=== PATIENT | male | born 1985 | race Caucasian/White ===

== ENCOUNTER 2018-01-17 11:56 | Inpatient (IN) ==
--- NOTE | 2018-01-17 12:41 | Emergency Department Note ---
[facility] [place] Disposition Condition on Discharge: Good <ManuelMartínez S - Last Filed: 01/17/18 14:05> Condition on Discharge: Good <Sylvie Epps - Last Filed: 01/17/18 14:07> Clinical Impression: Perirectal abscess Disposition: Still a Patient Medical Decision Making - Medical Records Medical records reviewed: Yes: I reviewed the patient's medical records. - Ivan Inquiry Pt receiving controlled substance: No Ivan was queried for this patient: No - Physician Consults Physician Consulted: Dr Boothe Time: 12:43 Reason -: Admission, Pt condition Comment/Response: Spoke with Dr Boothe that was covering for General Surgery about patient and findings He recommended admission and IV antibiotics and he would see patient when he made rounds at the hospital Additional Consult: Dr Jackson Time: 13:00 Reason -: Admission, Pt condition Comment/Response: Spoke with Dr Jackson ER physician and asked him to consult on this patient and speak with patient about admission for IV antibiotics and surgery consult Dr Jackson at the bedside talking with patient about treatment options and patient agreed to be admitted to the hospital for IV antibiotics and treatment as appropriate. Dr Jackson spoke with patient about family doctor and advise that he would call and speak with them about admission <Sylvie Epps E - Last Filed: 01/17/18 14:07> Vital Signs: 01/17/18 12:18 Temperature 98.4 F Temperature Source Temporal Artery Scan Pulse Rate [Right Brachial] 104 H Respiratory Rate 20 Blood Pressure [Right Arm] 147/72 Blood Pressure Mean [Right Arm] 97 Blood Pressure Source [Right Arm] Automatic Cuff Blood Pressure Position [Right Arm] Sitting 02 Sat by Pulse Oximetry 98 Oxygen Delivery Method Room Air [facility] [place] HPI <ManuelMartínez Leslie - Last Filed: 01/17/18 14:05> - General Mode of Arrival: Family Vehicle Source of Information: Patient Limitations: No Limitations Description of Symptoms (Recalled from Triage Doc. by RN): REDNESS AND SWELLING ABOVE "BUTT CRACK" X 3 DAYS WITH INCREASING PAIN HEENT Symptoms (Recalled from RN notes): No Resp Symptoms (Recalled from RN notes): No Skin Symptoms (Recalled from RN notes): Yes MS Symptoms (Recalled from RN notes): No Functional Status (Recalled from RN notes): N/A - History of Present Illness Provider Complaint: Patient states that he has been having pain around the top of his "butt crack" for the last 3 days. State that he had his look at it and she noticed that he had a red knot like area there that was swollen and looked infected so they tried to open it at home to see if they could get anything out but nothing came out of it it hurt to bad and he made her stop This morning when he woke up it was swollen more and looked more red and he would have pain every time he tried to sit down so he came in to get checke dout - Worker's Comp Is this a Worker's Comp case?: No <EppsSylvie bishop - Last Filed: 01/17/18 14:07> - General Stated complaint: Swelling and redness above "butt crack" Time Seen by Provider: 01/17/18 12:25 - Related Data Home Medications Medication Instructions Recorded Confirmed Omeprazole Magnesium [Prilosec Otc 20 mg PO DAILY 01/17/18 01/17/18 20mg Tab] Allergies Allergy/AdvReac Type Severity Reaction Status Date / Time No Known Allergies Allergy Verified 01/17/18 12:21 [facility] History I have reviewed the patient's past medical history: Yes Laterality Cases: Bilateral: Tonsillectomy - Social History Smoking Status: Current every day smoker Tobacco Type: cigarettes Alcohol Intake: never - Psychiatric History Expresses thoughts of harming self/others: None Suicide Plan Description: No Plan <MichAbida - Last Filed: 01/17/18 14:07> <Martínez Jackson - Last Filed: 01/17/18 14:05> ROS Obtained: Yes All systems reviewed & no additional complaints - Constitutional Constitutional: Denies chills, Denies fever(s) <MichAbida - Last Filed: 01/17/18 14:07> - Allergic/Immunologic Comments: Pain and swelling of area just above his "butt crack" state that family tried to open it up and get it to drain but nothing came out of it and it hurt to bad (Sylvie Epps) Physical Exam <Martínez Jackson - Last Filed: 01/17/18 14:05> - General General appearance: alert, in no apparent distress - Respiratory Respiratory exam: Present: normal lung sounds bilaterally. Absent: respiratory distress - Cardiovascular Cardiovascular exam: Present: regular rate - Neurological Exam Neurological exam: Present: alert, oriented X3 <Sylvie Epps - Last Filed: 01/17/18 14:07> - Rectal Exam comment: Large red, hard, pilonidal abcess noted, warm to touch with area where it appears that someone attempted to open area, no drainage noted at this time. Swelling with hardness noted on both upper buttocks State that pain worse when he tries to sit down (Sylvie Epps) - Other Other exam information: Large pilonidal abcess noted, red warm to touch that extended down into buttock area approximately about 3-4 inches long Tender to touch Patient state that pain is worse when he tries to sit down. Denies fever, denies chills (Sylvie Epps)
[2018-01-17 15:36] LABS: Basophils % 0.3 % (0.1-2.0); Eosinophils # 0.2 K/mm3 (0.0-0.4); Eosinophils % 1.6 % (0.1-12.0); Hematocrit 44.9 % (42.0-52.0); Hemoglobin 15.3 g/dL (14.1-18.0); Lymphocytes # 2.4 K/mm3 (0.7-4.5); Lymphocytes % 19.6 K/mm3 (10-50); Mean Corpuscular HGB Conc 34.1 g/dL (31.8-35.4); Mean Corpuscular Hemoglobin 30.2 pg (27.0-31.2); Mean Corpuscular Volume 88.5 fl (80-94); Mean Platelet Volume 8.4 fl (7.4-10.4); Monocytes # 0.8 K/mm3 (0.1-1.0); Monocytes % 6.2 % (1.7-9.3); Neutrophils # 8.8 K/mm3 (1.8-7.8); Neutrophils % 72.3 % (37.0-80.0); Platelet Count 223 K/mm3 (142-424); Red Blood Count 5.08 M/mm3 (4.60-6.20); Red Cell Distribution Width 12.8 % (11.5-17.5); White Blood Count 12.2 K/mm3 (4.8-10.8)
[2018-01-17 15:48] LABS: Albumin Level 3.9 gm/dL (3.4-5.0); Albumin/Globulin Ratio 0.9 (1.1-1.8); Bilirubin,Total 0.6 mg/dL (0.2-1.0); Calcium 9.4 mg/dL (8.5-10.1); Globulin 4.3 gm/dl (1.3-3.2); Total Protein,Serum 8.2 gm/dL (6.4-8.2)
--- NOTE | 2018-01-17 18:27 | History & Physical Report ---
*Admission Date: 01/17/18 *Chief complaint: Gluteal cleft abscess *History of present illness: 32-year-old white male with no significant medical history and no medications at home, who over the past couple of weeks noticed some increasing swelling at the top of the gluteal cleft on the left side. He and his attempted to jarod this at home but were unsuccessful yesterday and came to the [facility] today where pilonidal cyst was diagnosed with significant redness and swelling. ER physician examined him and recommended admission with surgical consultation. 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 He has noticed the swelling has worsened with activity. Denies neurologic symptoms into his legs, bowel or bladder changes or saddle anesthesia. [facility] History I have reviewed the patient's past medical history: Yes Medical History: Denies:: Cancer, Diabetes Mellitus Type 1, Diabetes Mellitus Type 2, MRSA Laterality Cases: Bilateral: Tonsillectomy Other Surgeries: Yes: Other (tosilectomy) Amputation: No Fractures: No - *Social History Educational Level: Completed High School Smoking Status: Current every day smoker Tobacco Type: cigarettes Alcohol Intake: never Occupational Status: employed Housing: house Household Members: spouse - Psychiatric History Expresses thoughts of harming self/others: None Suicide Plan Description: No Plan *Family Hx:: Hypertension Review of Systems - Constitutional Reports fever(s), Denies chills - Eyes Denies blind spots, Denies blurry vision - ENT Denies abnormal hearing - *Cardiovascular Denies chest pain, Denies chest pain at rest, Denies chest pain with activity, Denies excessive sweating, Denies shortness of breath - *Respiratory Denies change in phlegm color, Denies chest congestion, Denies cough - *Gastrointestinal Denies abdominal pain, Denies belching - *Genitourinary Denies difficulty urinating, Denies painful urination - *Musculoskeletal Denies abnormal walking - *Neurologic Denies abnormal walking - Endocrine Denies cold intolerance, Denies flushing, Denies rapid, pounding, or irregular heartbeat Meds Home Medications Medication Instructions Recorded Confirmed Type Omeprazole Magnesium [Prilosec Otc 20 mg PO DAILY 01/17/18 01/17/18 History 20mg Tab] Allergies Allergy/AdvReac Type Severity Reaction Status Date / Time No Known Allergies Allergy Verified 01/17/18 12:21 Exam Vital signs and Labs for Last 24 Hours: Temp Pulse Resp BP Pulse Ox 98.3 F 104 H 20 145/92 98 01/17/18 14:40 01/17/18 14:40 01/17/18 14:40 01/17/18 14:40 01/17/18 14:40 Laboratory Results - last 24 hr 01/17/18 15:25: WBC 12.2 H, RBC 5.08, Hgb 15.3, Hct 44.9, MCV 88.5, MCH 30.2, MCHC 34.1, RDW 12.8, Plt Count 223, MPV 8.4, Neut % (Auto) 72.3, Lymph % (Auto) 19.6, Tyler % (Auto) 6.2, Eos % (Auto) 1.6, Baso % (Auto) 0.3, Neut # (Auto) 8.8 H, Lymph # (Auto) 2.4, Tyler # (Auto) 0.8, Eos # (Auto) 0.2, Baso # (Auto) 0.0 01/17/18 15:25: Sodium 137, Potassium 4.0, Chloride 101, Carbon Dioxide 30, Anion Gap 10.0, BUN 12, Creatinine 0.96, Estimated Creat Clear 186, Estimated GFR 90, Est GFR ( Amer) 109, Glucose 93, Calcium 9.4, Total Bilirubin 0.6 , AST 26, ALT 48, Alkaline Phosphatase 96, Total Protein 8.2, Albumin 3.9, Globulin 4.3 H, Albumin/Globulin Ratio 0.9 L I & O for Last 24 hours: Intake & Output 01/15/18 01/16/18 01/17/18 01/18/18 11:59 11:59 11:59 11:59 Intake Total 840 / 840 Balance 840 / 840 Weight 265 lb 3 oz - Constitutional no acute distress - *Routine HEENT Exam Head: Present: normocephalic, atraumatic Eye: Present: EOMI - *Routine Neck Exam Present: supple - *Routine Respiratory Exam Present: accessory muscle use, CTA bilaterally - *Routine Cardiovascular Exam Present: RRR, Normal S1, Normal S2 - *Routine Abdominal Exam Present: soft, normoactive bowel sounds - *Routine Rectal Exam Comments: Pilonidal cyst at the top of the gluteal cleft, extremely tender, fluctuant area of approximately 2 cm x 1 cm on the left aspect of the left upper buttock. Surrounding redness is approximately 4 cm around this area. - *Routine Extremities Exam Present: full ROM. Absent: cyanosis, clubbing, edema - *Routine Neurological Exam Present: alert, oriented X3, CN II-XII intact H&P: Result - Labs Labs: Short CBC 01/17/18 Range/Units 15:25 WBC 12.2 H (4.8-10.8) K/mm3 Hgb 15.3 (14.1-18.0) g/dL Hct 44.9 (42.0-52.0) % Plt Count 223 (142-424) K/mm3 BMP 01/17/18 15:25 Sodium 137 Potassium 4.0 Chloride 101 Carbon Dioxide 30 BUN 12 Creatinine 0.96 Glucose 93 Calcium 9.4 Liver Function 01/17/18 Range/Units 15:25 Total Bilirubin 0.6 (0.2-1.0) mg/dL AST 26 (15-37) U/L ALT 48 (12-78) U/L Alkaline Phosphatase 96 (46-116) U/L Albumin 3.9 (3.4-5.0) gm/dL Assessment and Plan (1) Pilonidal cyst Current visit: Yes Status: Acute Category: Medical Code(s): L05.91 - Pilonidal cyst without abscess (2) Perirectal abscess Current visit: Yes Status: Acute Category: Medical Code(s): K61.1 - Rectal abscess Agree with admission for IV antibiotics, surgical consultation. Follow labs.
[2018-01-18 07:44] LABS: Basophils % 0.3 % (0.1-2.0); Hematocrit 40.1 % (42.0-52.0); Lymphocytes # 2.4 K/mm3 (0.7-4.5); Monocytes # 0.8 K/mm3 (0.1-1.0); Red Cell Distribution Width 12.8 % (11.5-17.5)
--- NOTE | 2018-01-18 07:45 | Progress Note ---
Internal Medicine - PN: Subj *Date: 01/18/18 *Time: 07:45 Interval history: No problems overnight, slept well. N.p.o. this morning. Exam Vital signs and Labs for Last 24 Hours: Temp Pulse Resp BP Pulse Ox 98.3 F 77 18 102/51 97 01/18/18 04:00 01/18/18 04:00 01/18/18 04:00 01/18/18 04:00 01/18/18 04:00 Laboratory Results - last 24 hr 01/17/18 15:25: WBC 12.2 H, RBC 5.08, Hgb 15.3, Hct 44.9, MCV 88.5, MCH 30.2, MCHC 34.1, RDW 12.8, Plt Count 223, MPV 8.4, Neut % (Auto) 72.3, Lymph % (Auto) 19.6, Otoe % (Auto) 6.2, Eos % (Auto) 1.6, Baso % (Auto) 0.3, Neut # (Auto) 8.8 H, Lymph # (Auto) 2.4, Otoe # (Auto) 0.8, Eos # (Auto) 0.2, Baso # (Auto) 0.0 01/17/18 15:25: Sodium 137, Potassium 4.0, Chloride 101, Carbon Dioxide 30, Anion Gap 10.0, BUN 12, Creatinine 0.96, Estimated Creat Clear 186, Estimated GFR 90, Est GFR ( Amer) 109, Glucose 93, Calcium 9.4, Total Bilirubin 0.6 , AST 26, ALT 48, Alkaline Phosphatase 96, Total Protein 8.2, Albumin 3.9, Globulin 4.3 H, Albumin/Globulin Ratio 0.9 L I & O for Last 24 hours: Intake & Output 01/15/18 01/16/18 01/17/18 01/18/18 11:59 11:59 11:59 11:59 Intake Total 2328 / 2328 Balance 2328 / 2328 Weight 265 lb 3 oz Narrative: Cardio pulmonary assessment unremarkable, no fevers. No change in appearance of pilonidal cyst. Assessment and Plan (1) Pilonidal cyst Current visit: Yes Status: Acute Category: Medical Code(s): L05.91 - Pilonidal cyst without abscess (2) Perirectal abscess Current visit: Yes Status: Acute Category: Medical Code(s): K61.1 - Rectal abscess - Assessment and plan all Dx Assessment and Plan for all problems:: Surgical consultation today. Continue IV antibiotics.
[2018-01-18 07:47] LABS: Anion Gap 11.9 mEq/L (5-15); Potassium 3.9 mmoL/L (3.5-5.1)
[2018-01-18 07:53] LABS: Eosinophils # 0.3 K/mm3 (0.0-0.4); Eosinophils % 2.7 % (0.1-12.0); Lymphocytes % 23.1 K/mm3 (10-50); Mean Corpuscular HGB Conc 33.6 g/dL (31.8-35.4); Mean Corpuscular Hemoglobin 29.7 pg (27.0-31.2); Mean Corpuscular Volume 88.6 fl (80-94); Mean Platelet Volume 8.8 fl (7.4-10.4); Monocytes % 7.4 % (1.7-9.3); Neutrophils % 66.6 % (37.0-80.0); Platelet Count 192 K/mm3 (142-424); Red Blood Count 4.53 M/mm3 (4.60-6.20); White Blood Count 10.5 K/mm3 (4.8-10.8)
[2018-01-18 07:54] LABS: Hemoglobin 13.5 g/dL (14.1-18.0)
--- NOTE | 2018-01-18 08:40 | Pharmacy Consult Notes ---
[facility] Pharmacy VTE Monitoring - Patient Demographics Admission date: 01/17/18 Report Date: 01/18/18 Time: 08:40 Allergies/Adverse Reactions: Patient Allergies No Known Allergies Allergy (Verified 01/17/18 12:21) Height: 1.75 m Weight: 120.287 kg Patient Problems: Current Active Problems Perirectal abscess (Acute) Pilonidal cyst (Acute) - VTE Risk Labs: VTE Related Lab Results Hgb 13.5 g/dL (14.1-18.0) L D 01/18/18 06:40 Hct 40.1 % (42.0-52.0) L 01/18/18 06:40 Plt Count 192 K/mm3 (142-424) 01/18/18 06:40 BUN 12 mg/dL (7-18) 01/18/18 06:40 Creatinine 0.81 mg/dL (0.70-1.30) 01/18/18 06:40 Estimated Creat Clear 221 mL/min (0-300) 01/18/18 06:40 VTE Score: 1 VTE Risk Level: Very Low Risk - Prophylaxis VTE Prophylaxis Ordered?: Yes Types of VTE Prophylaxis: TEDS Knee High Location of Applied Device: Bilateral Lower Extremeties
--- NOTE | 2018-01-18 11:09 | Consult Report ---
*Admission Date: 01/17/18 *Chief complaint: pilonidal abscess *History of present illness: 32-year-old white male with no significant medical history and no medications at home, who over the past couple of weeks noticed some increasing swelling at the top of the gluteal cleft on the left side. He and his attempted to jarod this at home but were unsuccessful yesterday and came to the [facility] today where pilonidal cyst was diagnosed with significant redness and swelling. ER physician examined him and recommended admission with surgical consultation. 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 He has noticed the swelling has worsened with activity. Denies neurologic symptoms into his legs, bowel or bladder changes or saddle anesthesia. Review of Systems - Review of Systems Review of systems:: pertinent systems reviewed and negative unless documented below - *Neurologic Denies abnormal walking, Denies abnormal hearing [facility] History I have reviewed the patient's past medical history: Yes Medical History: Reports:: Gastroesophageal Reflux Disease(GERD) Denies:: Cancer, Diabetes Mellitus Type 1, Diabetes Mellitus Type 2, MRSA Laterality Cases: Bilateral: Tonsillectomy Other Surgeries: Yes: Other (tosilectomy) Amputation: No Fractures: No - *Social History Educational Level: Completed High School Smoking Status: Current every day smoker Tobacco Type: cigarettes Alcohol Intake: current Alcohol Intake Frequency:: a few times a week Occupational Status: employed Housing: house Household Members: spouse - Psychiatric History Expresses thoughts of harming self/others: None Suicide Plan Description: No Plan *Family Hx:: Hypertension Meds Home Medications Medication Instructions Recorded Confirmed Type Omeprazole Magnesium [Prilosec Otc 20 mg PO DAILY 01/17/18 01/17/18 History 20mg Tab] Allergies Allergy/AdvReac Type Severity Reaction Status Date / Time No Known Allergies Allergy Verified 01/17/18 12:21 Exam Vital signs and Labs for Last 24 Hours: Temp Pulse Resp BP Pulse Ox 98.4 F 84 18 122/48 97 01/18/18 07:45 01/18/18 07:45 01/18/18 07:45 01/18/18 07:45 01/18/18 08:00 Laboratory Results - last 24 hr 01/17/18 15:25: WBC 12.2 H, RBC 5.08, Hgb 15.3, Hct 44.9, MCV 88.5, MCH 30.2, MCHC 34.1, RDW 12.8, Plt Count 223, MPV 8.4, Neut % (Auto) 72.3, Lymph % (Auto) 19.6, Moore % (Auto) 6.2, Eos % (Auto) 1.6, Baso % (Auto) 0.3, Neut # (Auto) 8.8 H, Lymph # (Auto) 2.4, Moore # (Auto) 0.8, Eos # (Auto) 0.2, Baso # (Auto) 0.0 01/17/18 15:25: Sodium 137, Potassium 4.0, Chloride 101, Carbon Dioxide 30, Anion Gap 10.0, BUN 12, Creatinine 0.96, Estimated Creat Clear 186, Estimated GFR 90, Est GFR ( Amer) 109, Glucose 93, Calcium 9.4, Total Bilirubin 0.6 , AST 26, ALT 48, Alkaline Phosphatase 96, Total Protein 8.2, Albumin 3.9, Globulin 4.3 H, Albumin/Globulin Ratio 0.9 L 01/18/18 06:40: WBC 10.5, RBC 4.53 L, Hgb 13.5 L D, Hct 40.1 L, MCV 88.6, MCH 29.7, MCHC 33.6, RDW 12.8, Plt Count 192, MPV 8.8, Neut % (Auto) 66.6, Lymph % ( Auto) 23.1, Moore % (Auto) 7.4, Eos % (Auto) 2.7, Baso % (Auto) 0.3, Neut # (Auto ) 7.0, Lymph # (Auto) 2.4, Moore # (Auto) 0.8, Eos # (Auto) 0.3, Baso # (Auto) 0.0 01/18/18 06:40: Sodium 139, Potassium 3.9, Chloride 105, Carbon Dioxide 26, Anion Gap 11.9, BUN 12, Creatinine 0.81, Estimated Creat Clear 221, Estimated GFR 110, Est GFR ( Amer) 133 D, Glucose 105 I & O for Last 24 hours: Intake & Output 01/15/18 01/16/18 01/17/1801/18/18 23:59 23:59 23:59 23:59 Intake Total 840 / 840 1488 / 1488 Balance 840 / 840 1488 / 1488 Weight 265 lb 3 oz 265 lb 3 oz - Constitutional no acute distress - *Routine Respiratory Exam Absent: accessory muscle use, patient mechanically ventilated, wheezes - *Routine Cardiovascular Exam Present: RRR - *Routine Rectal Exam Comments: fluctuant pilonidal abscess in gluteal cleft with cellulitis extending down bilateral glutes. Results - Labs 01/18/18 06:40 01/18/18 06:40 Laboratory Results - last 24 hr 01/17/18 15:25: WBC 12.2 H, RBC 5.08, Hgb 15.3, Hct 44.9, MCV 88.5, MCH 30.2, MCHC 34.1, RDW 12.8, Plt Count 223, MPV 8.4, Neut % (Auto) 72.3, Lymph % (Auto) 19.6, Moore % (Auto) 6.2, Eos % (Auto) 1.6, Baso % (Auto) 0.3, Neut # (Auto) 8.8 H, Lymph # (Auto) 2.4, Moore # (Auto) 0.8, Eos # (Auto) 0.2, Baso # (Auto) 0.0 01/17/18 15:25: Sodium 137, Potassium 4.0, Chloride 101, Carbon Dioxide 30, Anion Gap 10.0, BUN 12, Creatinine 0.96, Estimated Creat Clear 186, Estimated GFR 90, Est GFR ( Amer) 109, Glucose 93, Calcium 9.4, Total Bilirubin 0.6 , AST 26, ALT 48, Alkaline Phosphatase 96, Total Protein 8.2, Albumin 3.9, Globulin 4.3 H, Albumin/Globulin Ratio 0.9 L 01/18/18 06:40: WBC 10.5, RBC 4.53 L, Hgb 13.5 L D, Hct 40.1 L, MCV 88.6, MCH 29.7, MCHC 33.6, RDW 12.8, Plt Count 192, MPV 8.8, Neut % (Auto) 66.6, Lymph % ( Auto) 23.1, Moore % (Auto) 7.4, Eos % (Auto) 2.7, Baso % (Auto) 0.3, Neut # (Auto ) 7.0, Lymph # (Auto) 2.4, Moore # (Auto) 0.8, Eos # (Auto) 0.3, Baso # (Auto) 0.0 01/18/18 06:40: Sodium 139, Potassium 3.9, Chloride 105, Carbon Dioxide 26, Anion Gap 11.9, BUN 12, Creatinine 0.81, Estimated Creat Clear 221, Estimated GFR 110, Est GFR ( Amer) 133 D, Glucose 105 Assessment and Plan (1) Pilonidal cyst Current visit: Yes Status: Acute Category: Medical Code(s): L05.91 - Pilonidal cyst without abscess (2) Pilonidal abscess Current visit: Yes Status: Acute Category: Medical Code(s): L05.01 - Pilonidal cyst with abscess - Assessment and plan all Dx Assessment and Plan for all problems:: Continue IV antibiotics. To OR for I&D.
--- NOTE | 2018-01-18 12:38 | Operative Note ---
Date of procedure: 01/18/18 Pre-op Diagnosis:: pilonidal abscess Post-op Diagnosis:: same Procedure performed:: incision and drainage Surgeon:: Selvin Boothe MD Shuttle Van Driver(s):: Blu LIABILITY CLAIMS REPRESENTATIVE:: Frederic Velazquez Anesthesia: GETA Estimated blood loss (mL): 10 Clinical Note:: 32 year old male with pilonidal abscess and cellulitis. Operative findings:: pilonidal abscess Operative note:: Patient was brought to operating room and after induction of anesthesia, was placed in prone jackknife position. The lower back and buttocks were prepped and draped in the usual sterile fashion. A brief timeout was performed prior to the start of the procedure. I was able to express purulent drainage from a fluctuant area to the right of the gluteal cleft, and cut down sharply over that area, making a cruciate incision and carrying down into the abscess cavity. Foul smelling purulent drainage was encountered and evacuated. A hemostat was used to probe the abscess cavity, identify and break up loculations. I noted that the abscess cavity extended across midline to the left side, and using the hemostat identified an area to make a second cruciate incision on the left. This side was also probed with the hemostat and loculations broken up. It appeared to be one large abscess cavity. Each side was then copiously irrigated and packed with quarter inch nugauze. A dressing was applied, anesthesia was terminated and the patient transferred to PACU in stable condition. All sponge, instrument and needle counts were correct at the end of the case. There were no complications. Condition: stable Disposition: PACU Specimens:: abscess cavity cultures Complications:: none
--- NOTE | 2018-01-18 12:43 | Progress Note ---
[facility] Anesthesia Record Part I Intake, IV Amount: 700 Estimated blood loss (mL): 10 Urine output (mL): 0 Blood Products used (#): none Blood Pressure: 135/70 SaO2: 90 Pulse Rate: 84 Respiratory Rate: 18 Temperature: 97.0 F Patient is:: Drowsy, Nasal O2, Stable Stable to PACU at:: 12:39
--- NOTE | 2018-01-18 12:44 | Progress Note ---
[facility] Anesthesia Checklist - Patient Identification Patient Identification: Arm Band, Verbal (Name & ) - Structural Data Admitted From: Inpatient Planned Operative Procedure/s: i&d pylonidal cyst Consent for Planned Operative Procedure(s) Verified: Yes Verified Documents: Surgical Consent, History and Physical - NPO Status Verified Time NPO: 00:00 - Additional verifications Patient : No Anesthesia Reactions: No Hx Blood Transfusions: No Blood Transfusion Reaction: No Cephalosporin Allergy: No Previous Colonoscopy: No - Cardiovascular Assessment Heart Sounds: S1 & S2 Pulse Strength: Baseline Pulse Rhythm: Regular Peripheral Edema: No - Airway Assessment C-Spine Mobility Assessed: Yes TMJ Mobility Assessed: Yes Dentition: Good Dentition - Neurological Assessment Level of Consciousness: Awake, Alert, Appropriate Hx Seizures: No Numbness or tingling in extremities: No - Anesthesia Plan Anesthesia Risk discussed: Yes Anesthesia Plan: Verified ASA Class: I Anesthesia Type: General [facility] Anesthesia HX I have reviewed the patient's past medical history: Yes Medical History: Reports:: Gastroesophageal Reflux Disease(GERD) Denies:: Cancer, Diabetes Mellitus Type 1, Diabetes Mellitus Type 2, MRSA Laterality Cases: Bilateral: Tonsillectomy Other Surgeries: Yes: Other (tosilectomy) Amputation: No Fractures: No *Family Hx:: Hypertension
--- NOTE | 2018-01-18 12:45 | Progress Note ---
[facility] Anesthesia Record Part II Discharge Time: 13:09 Destination: Medical Surgical Department PACU nurse assessment reviewed?: Yes Patient Condition:: Good Anesthesia Complications:: None
--- NOTE | 2018-01-19 07:31 | Progress Note ---
Internal Medicine - PN: Subj *Date: 01/19/18 *Time: 07:31 Interval history: Patient did well overnight. Has minimal pain. Sitting on the side of the bed. Surgical notes and or note reviewed Exam Vital signs and Labs for Last 24 Hours: Temp Pulse Resp BP Pulse Ox 98.2 F 86 20 166/77 97 01/19/18 07:23 01/19/18 07:23 01/19/18 07:23 01/19/18 07:23 01/19/18 07:23 Laboratory Results - last 24 hr 01/18/18 06:40: WBC 10.5, RBC 4.53 L, Hgb 13.5 L D, Hct 40.1 L, MCV 88.6, MCH 29.7, MCHC 33.6, RDW 12.8, Plt Count 192, MPV 8.8, Neut % (Auto) 66.6, Lymph % ( Auto) 23.1, Hayes % (Auto) 7.4, Eos % (Auto) 2.7, Baso % (Auto) 0.3, Neut # (Auto ) 7.0, Lymph # (Auto) 2.4, Hayes # (Auto) 0.8, Eos # (Auto) 0.3, Baso # (Auto) 0.0 01/18/18 06:40: Sodium 139, Potassium 3.9, Chloride 105, Carbon Dioxide 26, Anion Gap 11.9, BUN 12, Creatinine 0.81, Estimated Creat Clear 221, Estimated GFR 110, Est GFR ( Amer) 133 D, Glucose 105 I & O for Last 24 hours: Intake & Output 01/16/18 01/17/18 01/18/18 01/19/18 11:59 11:59 11:59 11:59 Intake Total 8 / 2328 2119 Balance 232 / 2328 2119 Weight 265 lb 3 oz Microbiology Reports for the Last 24 Hours: Microbiology 01/17/18 15:25 Blood Blood Culture - Preliminary NO GROWTH AFTER 24 HOURS 01/17/18 15:25 Blood Blood Culture - Preliminary NO GROWTH AFTER 24 HOURS 01/18/18 Unknown Buttock Gram Stain - Final Narrative: Pleasant, talkative, alert. Surgical wound deferred to surgical examination. Assessment and Plan (1) Pilonidal cyst Current visit: Yes Status: Acute Category: Medical Code(s): L05.91 - Pilonidal cyst without abscess (2) Pilonidal abscess Current visit: Yes Status: Acute Category: Medical Code(s): L05.01 - Pilonidal cyst with abscess - Assessment and plan all Dx Assessment and Plan for all problems:: Surgical reevaluation today, okay to discharge from my perspective of surgery okay with this.
--- NOTE | 2018-01-19 08:38 | Progress Note ---
Subjective Patient reports: no new complaints Exam Vital signs and Labs for Last 24 Hours: Temp Pulse Resp BP Pulse Ox 98.2 F 86 20 166/77 97 01/19/18 07:23 01/19/18 07:23 01/19/18 07:23 01/19/18 07:23 01/19/18 07:23 I & O for Last 24 hours: Intake & Output 01/16/18 01/17/18 01/18/18 01/19/18 11:59 11:59 11:59 11:59 Intake Total 2328 / 2328 2119 Balance 232 / 2322119 Weight 265 lb 3 oz Microbiology Reports for the Last 24 Hours: Microbiology 01/17/18 15:25 Blood Blood Culture - Preliminary NO GROWTH AFTER 24 HOURS 01/17/18 15:25 Blood Blood Culture - Preliminary NO GROWTH AFTER 24 HOURS 01/18/18 Unknown Buttock Gram Stain - Final - *Routine Skin Exam Comments: Dressing change performed. Patient has open wound on each side of the gluteal cleft. Packing removed. Large amount of soft tissue edema induration and cellulitis persists. Progress Note: A&P (1) Pilonidal cyst Status: Acute Current Visit: Yes (2) Pilonidal abscess Status: Acute Assessment and plan: Due to the large amount of evidence of ongoing cellulitis and soft tissue infection continue inpatient management with intravenous antibiotics, wound care , and pain control. Current Visit: Yes
[2018-01-20 03:56] VITALS: BP 124/55
--- NOTE | 2018-01-20 07:13 | Progress Note ---
Subjective Patient reports: feels better Narrative: Tolerating dressing changes very well. Feels better. Less pain. Exam Vital signs and Labs for Last 24 Hours: Temp Pulse Resp BP Pulse Ox 98.2 F 70 20 124/55 96 01/20/18 03:55 01/20/18 03:55 01/20/18 03:55 01/20/18 03:55 01/20/18 03:55 I & O for Last 24 hours: Intake & Output 01/17/18 01/18/18 01/19/18 01/20/18 11:59 11:59 11:59 11:59 Intake Total 2328 / 2328 2119 / 0 2071 Balance 2328 / 2328 2119 Weight 265 lb 3 oz Microbiology Reports for the Last 24 Hours: Microbiology 01/17/18 15:25 Blood Blood Culture - Preliminary NO GROWTH AFTER 48 HOURS 01/17/18 15:25 Blood Blood Culture - Preliminary NO GROWTH AFTER 48 HOURS 01/18/18 Unknown Buttock Gram Stain - Final 01/18/18 Unknown Buttock Abscess Culture - Preliminary NO GROWTH AFTER 24 HOURS - *Routine Skin Exam Comments: Wound is relatively clean. Markedly diminished erythema/cellulitis and induration Progress Note: A&P (1) Pilonidal cyst Status: Acute Current Visit: Yes (2) Pilonidal abscess Status: Acute Assessment and plan: Plan for discharge home today with twice daily quarter inch plain packing dressings. Will need oral antibiotics. Follow-up 1 week. Current Visit: Yes
--- NOTE | 2018-01-20 07:30 | Discharge Summary ---
General - General Admission date:: 01/17/18 Discharge date: 01/20/18 HPI HPI: 32-year-old white male with no significant medical history and no medications at home, who over the past couple of weeks noticed some increasing swelling at the top of the gluteal cleft on the left side. He and his attempted to jarod this at home but were unsuccessful yesterday and came to the [facility] today where pilonidal cyst was diagnosed with significant redness and swelling. ER physician examined him and recommended admission with surgical consultation. 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 He has noticed the swelling has worsened with activity. Denies neurologic symptoms into his legs, bowel or bladder changes or saddle anesthesia. Hospital Course Hospital Course: Patient was admitted, IV antibiotics were started. Surgical consultation was obtained. Taken OR the following day and pilonidal cyst was drained and excised. Packing was done and the patient was observed overnight. The following day continued to need packing and this was again accomplished. This morning patient is much improved. Please see surgical notes for details of the evaluation of the cyst area. Cultures have been negative. Patient will be discharged home with dressing change instructions, close follow-up in surgical clinic and then in my office and with antibiotics and pain medicine for dressing change. Instructed to be off work until further notice. Objective Vital signs: Temp Pulse Resp BP Pulse Ox 98.2 F 70 20 124/55 96 01/20/18 03:55 01/20/18 03:55 01/20/18 03:55 01/20/18 03:55 01/20/18 03:55 Narrative: Cardiopulmonary exam unremarkable, patient ambulatory, pleasant and talkative and oriented. Please see surgical notes for exam is regarding the cyst and its packing. Results Labs on day of discharge: Preliminary micro results at discharge 01/17/18 15:25 Blood Culture - Preliminary Blood NO GROWTH AFTER 48 HOURS 01/17/18 15:25 Blood Culture - Preliminary Blood NO GROWTH AFTER 48 HOURS 01/18/18 Unknown Abscess Culture - Preliminary Buttock NO GROWTH AFTER 24 HOURS DS: Diagnosis - Discharge Diagnosis (1) Pilonidal cyst Status: Acute (2) Pilonidal abscess Status: Acute Discharge Plan - Patient Discharge Instructions ACTIVITY: Continue current activity, No heavy lifting DIET: continue same diet - Follow up Plan Follow up with: Selvin Parada MD [Staff Physician] - 2 weeks Sher Carrera MD [Staff Physician] - 1 week Frederic Cao MD [Staff Physician] - 01/28/18 Disposition: Home, Self-Half-Way Medications: Home Medications Medication Instructions Recorded Confirmed Type Omeprazole Magnesium [Prilosec Otc 20 mg PO DAILY 01/17/18 01/17/18 History 20mg Tab] Prescriptions/Medication Reconciliation: New Hydrocod/Acet 5/325 mg [[place] 5/325mg tablet] 1 - 2 tab PO Q6HP PRN #21 tab PRN Reason: Moderate Pain Sulfamethoxazole/Trimethoprim [Bactrim DS tablet] 1 each PO BID #20 tab Continue Omeprazole Magnesium [Prilosec Otc 20mg Tab] 20 mg PO DAILY
--- NOTE | 2018-01-20 07:50 | Progress Note ---
Internal Medicine - PN: Subj *Date: 01/20/18 *Time: 07:50 Exam Vital signs and Labs for Last 24 Hours: Temp Pulse Resp BP Pulse Ox 98.2 F 70 20 124/55 96 01/20/18 03:55 01/20/18 03:55 01/20/18 03:55 01/20/18 03:55 01/20/18 03:55 I & O for Last 24 hours: Intake & Output 01/17/18 01/18/18 01/19/18 01/20/18 23:59 23:59 23:59 23:59 Intake Total 840 / 840 2668 / 2668 3012 / 3012 Balance 840 / 840 2668 / 2668 3012 / 3012 Weight 120.287 kg 120.287 kg Microbiology Reports for the Last 24 Hours: Microbiology 01/17/18 15:25 Blood Blood Culture - Preliminary NO GROWTH AFTER 48 HOURS 01/17/18 15:25 Blood Blood Culture - Preliminary NO GROWTH AFTER 48 HOURS 01/18/18 Unknown Buttock Gram Stain - Final 01/18/18 Unknown Buttock Abscess Culture - Preliminary NO GROWTH AFTER 24 HOURS Assessment and Plan (1) Pilonidal cyst Current visit: Yes Status: Acute Category: Medical Code(s): L05.91 - Pilonidal cyst without abscess (2) Pilonidal abscess Current visit: Yes Status: Acute Category: Medical Code(s): L05.01 - Pilonidal cyst with abscess The patient's infection will respond to the chosen ABx?: Yes Is the patient receiving the right drug, dose, and route?: Yes Could a more targeted ABx be ordered?: No
== END 2018-01-20 09:00 | disposition home or self-care (01) ==
LOC: 2ND 11:56 → ER 11:56 → OBSVTOIN 14:18 → 2ND 14:28
PROVIDERS: ADMIT Internal Medicine Adolescent Medicine; ATTEND Internal Medicine Adolescent Medicine
DX: L05.01 Pilonidal cyst with abscess